=== PATIENT | female | born 2000 | race Caucasian/White ===

== ENCOUNTER 2019-05-24 12:56 | Emergency (ER) | payer OTHER ==
[2019-05-24] MEDS ORDERED: ONDANSETRON 4 MG/2 ML VIAL IVPUSH ONE (13:17)
[2019-05-24] MEDS ORDERED: SODIUM CHLORIDE 0.9% 500 ML INFUS.BAG IV ONE (13:17)
[2019-05-24] MEDS ORDERED: FAMOTIDINE 20 MG/50 ML IVPB 20 MG/50 ML MG IVPB ONE (13:19)
[2019-05-24] MEDS ORDERED: diphenhydrAMINE HCL 25 MG CAPSULE (FP) PO ONE (13:19)
[2019-05-24] MEDS ORDERED: predniSONE 20 MG TABLET (UD) PO ONE (13:19)
[2019-05-24] MEDS ORDERED: predniSONE 10 MG TABLET (UD) ONE (13:31)
--- NOTE | 2019-05-24 13:33 | PDOC ---
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 The pt reports being seen by her PCP yesterday and prescribed an abx for either a GI/vaginal complaint but does not remember the name. She took it for the first time approximately 1 hr [employer] (1230) on an empty stomach. She subsequently noted facial redness, minor swelling, vomiting, and chest tightness. She was given 'an injection' in the field by EMS. Endorses nausea, facial redness, feeling facial puffiness She denies fevers/chills, chest pain, current trouble breathing, throat tightness, cough, dysuria, hematuria, or changes in sensation 05/24/19 13:27 Past History - Past Medical History Allergies/Adverse Reactions: Allergies Allergy/AdvReac Type Severity Reaction Status Date / Time avocado Allergy Verified 05/24/19 13:35 shellfish derived Allergy Verified 05/24/19 13:35 Home Medications: Ambulatory Orders Epinephrine [Epipen 2-Addison] 0.3 mg IJ ASDIR #1 kit 05/24/19 predniSONE [Deltasone -] 40 mg PO DAILY 4 Days #8 tablet 05/24/19 Review of Systems - Review of Systems Able to Perform ROS?: Yes Comments:: GENERAL/CONSTITUTIONAL: No fever or chills. No weakness HEAD, EYES, EARS, NOSE AND THROAT: No change in vision. No change in hearing. No sore throat CARDIOVASCULAR: No chest pain RESPIRATORY: Denies cough GASTROINTESTINAL: +N/V; denies diarrhea or constipation GENITOURINARY: No dysuria, frequency, or change in urination MUSCULOSKELETAL: No joint or muscle swelling or pain. No neck or back pain SKIN: No rash NEUROLOGIC: No headache, vertigo, loss of consciousness, or change in strength/ sensation ENDOCRINE: No increased thirst. No abnormal weight change HEMATOLOGIC/LYMPHATIC: No anemia, easy bleeding, or history of blood clots ALLERGIC/IMMUNOLOGIC: No hives or skin allergy 05/24/19 13:33 Is the patient limited Italian proficient: No *Physical Exam - Physical Exam Comments: GENERAL: Awake, alert, and oriented to person/place/time, in no acute distress HEAD: No signs of trauma, normocephalic, atraumatic EYES: PERRLA, EOMI, sclera anicteric, conjunctiva clear ENT: Hearing grossly normal, nares patent, oropharynx clear without exudates or edema. Moist mucosa LUNGS: No distress, speaks in full sentences, clear to auscultation bilaterally HEART: Regular rate and rhythm, normal S1 and S2, no murmurs appreciated, peripheral pulses normal and equal bilaterally ABDOMEN: Soft, nontender, normoactive bowel sounds. No guarding, no rebound EXTREMITIES: Normal inspection, Normal range of motion, no edema. No clubbing or cyanosis NEUROLOGICAL: Cranial nerves II through XII grossly intact. 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 She does not know the name of the abx ED Course Prednisone, Zofran, Benadryl, IVF, Pepcid for symptomatic relief Upreg Will re-evaluate 05/24/19 13:35 Upreg neg Pt feels improved, rash improved Pt tolerating PO Rx for EpiPen x2 sent to pt's pharmacy Plan for D/C w/ PCP f/u Discharge instructions and return precautions given Patient in agreement and verbalized understanding Dispo: Home 05/24/19 16:00 Discharge - Discharge Information Problems reviewed: Yes Clinical Impression/Diagnosis: Allergic reaction Qualifiers: Encounter type: initial encounter Qualified Code(s): T78.40XA - Allergy, unspecified, initial encounter Condition: Improved Disposition: HOME - Admission No - Additional Discharge Information Prescriptions: Epinephrine [Epipen 2-Addison] 0.3 mg IJ ASDIR #1 kit predniSONE [Deltasone -] 40 mg PO DAILY 4 Days #8 tablet - Follow up/Referral Referrals: Carole Casillas MD [Primary Care Provider] - - Patient Discharge Instructions Patient Printed Discharge Instructions: DI for Adverse Drug Reaction -- Allergic Additional Instructions: You were seen in the Emergency Department for evaluation of an allergic reaction. Review the handout provided at discharge. Do not take that antibiotic any longer. Follow up with your primary care provider within the week. You may take Benadryl 50mg every 6 hours as needed for symptomatic relief. A prescription for Prednisione 40mg daily was sent to your pharmacy, take daily starting tomorrow, 05/25/19, for 4 days. Return to the Emergency Department if you develop fevers, chest pain, trouble breathing, worsening pain, change in sensation, worsening symptoms, or any new/ concerning symptoms. - Post Discharge Activity Work/Back to School Note: Back to Work
[2019-05-24 13:46] VITALS: BP 115/72; PULSE 92; TEMP 98.1; BMI 21.9
--- NOTE | 2019-05-24 14:45 | PDOC ---
Documentation entered by Elena Linn SCRIBE, acting as scribe for Servando Samuels MD. Servando Samuels MD: This documentation has been prepared by the Kaveh acuña Nirvannie, SCRIBE, under my direction and personally reviewed by me in its entirety. I confirm that the documentation accurately reflects all work, treatment, procedures, and medical decision making performed by me. Attending Attestation - Resident Resident Name: Anthony Cates - ED Attending Attestation I have performed the following: I have examined & evaluated the patient, The case was reviewed & discussed with the resident, I agree w/resident's findings & plan, Exceptions are as noted - HPI HPI: 05/24/19 13:50 The patient is a 19 year old female, with a significant past medical history of anaphylaxis (shellfish/avocado), hypothyroidism, and depression, who presents to the emergency department with facial redness and swelling and vomiting after taking an antibiotic.. Pt states she was prescribed an antibiotic by her PMD yesterday for "vaginal and GI" symptoms. She took the first dose of this antibiotic about 1 hour prior to her arrival. About 10 minutes after taking it, she began to feel flushed, with swelling in her face. Pt also vomited once. Pt went to an urgent care, where she was given an epi injection in her arm and sent via EMS to the ED. Pt currently reports improvement in her facial redness and swelling. Still endorses some epigastric discomfort. Denies any lip or tongue swelling. Denies SOB. Denies any rash on her body. Allergies: Avocado, shellfish. Primary Care Physician: Dr. Casillas. - Physicial Exam PE: 05/24/19 13:50 GENERAL: Awake, alert, and fully oriented, in no acute distress. HEAD: No signs of trauma EYES: PERRLA, EOMI, sclera anicteric, conjunctiva clear ENT: Auricles normal inspection, hearing grossly normal, nares patent, oropharynx clear without exudates. Moist mucosa NECK: Nontender, no stepoffs, Normal ROM, supple, no lymphadenopathy, JVD, or masses LUNGS: Breath sounds equal, clear to auscultation bilaterally. No wheezes, and no crackles HEART: Regular rate and rhythm, normal S1 and S2, no murmurs, rubs or gallops ABDOMEN: Soft, nontender, normoactive bowel sounds. No guarding, no rebound. No masses EXTREMITIES: Normal range of motion, no edema. No clubbing or cyanosis. No cords, erythema, or tenderness NEUROLOGICAL: Cranial nerves II through XII intact. 5/5 strength and sensation in all extremities, Normal speech, normal gait, normal cerebellar function SKIN: Warm, Dry, normal turgor, no rashes or lesions noted. - Medical Decision Making 05/24/19 14:47 19 F with possible allergic reaction to antibiotic. - Steroids, benadryl - Monitor in ED - Reassess Pt reassessed after 3 hours in ED, symptoms completely resolved. Will DC with steroids and epi pen Pt is well appearing, with normal vitals. Clinically stable for DC at this time. I discussed the physical exam findings, ancillary test results and final diagnoses with the patient. I answered all of the patient's questions. The patient was satisfied with the care received and felt comfortable with the discharge plan and treatment plan. The patient agrees to follow up with the primary care physician within 24-72 hours.
== END 2019-05-24 16:43 | disposition home or self-care (01) ==
LOC: JER 12:56
PROC: 3E033GC Introduction of Other Therapeutic Substance into Peripheral Vein, Percutaneous Approach (ICD-10-PCS; principal; 2019-05-24)
PROC: 3E033GC Introduction of Other Therapeutic Substance into Peripheral Vein, Percutaneous Approach (ICD-10-PCS; 2019-05-24)
DX: R07.89 Other chest pain (principal); R11.2 Nausea with vomiting, unspecified; T36.95XA Adverse effect of unspecified systemic antibiotic, initial encounter; Y92.018 Other place in single-family (private) house as the place of occurrence of the external cause; E03.9 Hypothyroidism, unspecified; F32.9 Major depressive disorder, single episode, unspecified; Z91.013 Allergy to seafood; Z91.018 Allergy to other foods
CPT/HCPCS: 84703; 99282-25

== ENCOUNTER 2022-12-16 03:43 | Day surgery (SDC) | payer OTHER ==
[2022-12-15 11:13] VITALS: BMI 25.0
[2022-12-16] MEDS ORDERED: PROPOFOL 20 ML ONE ×2 (07:36→08:28)
[2022-12-16] MEDS ORDERED: KETOROLAC TROMETHAMINE 30 MG/1 ML VIAL ONE (07:37)
[2022-12-16] MEDS ORDERED: DEXAMETHASONE SOD PHOSPHATE 4 MG/1 ML VIAL ONE (07:37)
[2022-12-16] MEDS ORDERED: MIDAZOLAM HCL 2 MG/2 ML SINGLE DOSE VIAL ONE (07:37)
[2022-12-16] MEDS ORDERED: SEVOFLURANE 250 ML BTL ONE (07:37)
[2022-12-16] MEDS ORDERED: ONDANSETRON 4 MG/2 ML VIAL ONE (07:37)
[2022-12-16] MEDS ORDERED: oxyCODONE HCL 5 MG TABLET PO PRN (07:49)
[2022-12-16] MEDS ORDERED: ONDANSETRON 4 MG/2 ML VIAL IVPUSH PRN (07:49)
[2022-12-16] MEDS ORDERED: PROMETHAZINE HCL 25 MG/1 ML VIAL IVPB PRN (07:49)
[2022-12-16] MEDS ORDERED: ACETAMINOPHEN 1000 MG/100 ML BAG IVPB PRN (07:52)
[2022-12-16] MEDS ORDERED: LACTATED RINGERS SOLUTION 1,000 ML IV SCH (08:00)
[2022-12-16] MEDS ORDERED: BUPIVACAINE HCL/PF 0.5% (5MG/ML) 10 ML VIAL IJ ONE (08:45)
[2022-12-16 09:40] VITALS: RESP 18
[2022-12-16] MEDS ORDERED: oxyCODONE HCL 5 MG TABLET ONE (11:05)
[2022-12-16 11:26] VITALS: BP 113/60; PULSE 78; TEMP 97.7
== END 2022-12-16 11:30 | disposition home or self-care (01) ==
LOC: JASU-SURG 03:43
PROVIDERS: ATTEND Specialist
PROC: 0UBM0ZZ Excision of Vulva, Open Approach (ICD-10-PCS; principal; 2022-12-16 08:00)
DX: D17.72 Benign lipomatous neoplasm of other genitourinary organ (principal)
CPT/HCPCS: 81025; 88304-TC; 94760